=== PATIENT | female | born 1990 | race Caucasian/White ===

== ENCOUNTER 2017-02-20 06:05 | Inpatient (IN) | payer OTHER, MEDICAID ==
[~2017-02-20 06:05] MED LIST: OXYTOCIN/LR *STANDARD DOSE PROTOCOL IV SCH
[2017-02-20 08:46] LABS: % IMMATURE GRANULYOCYTES 0.6 % (0.0-1.1); ABSOLUTE IMMATURE GRANULOCYTES 0.06 10^3/uL (0.00-0.10); ADD DIFF? NO; ADD MORPH? NO; ADD SCAN? NO; ATYPICAL LYMPHOCYTE FLAG 0 (0-99); FRAGMENT RBC FLAG 0 (0-99); HEMATOCRIT 39.5 % (38.0-47.0); HEMOGLOBIN 14.2 g/dL (12.6-16.3); LEFT SHIFT FLG 0 (0-99); LIPEMIA HEMOLYSIS FLAG 90 (0-99); MEAN CELL HEMOGLOBIN 32.3 pg (27.9-34.1); MEAN CELL HEMOGLOBIN CONCENTR. 35.9 g/dL (32.4-36.7); MEAN PLATELET VOLUME 13.7 fL (8.7-11.7); PLATELET CLUMPS FLAG 20 (0-99); PLATELET COUNT 104 10^3/uL (150-400); RED BLOOD CELL COUNT 4.39 10^6/uL (4.18-5.33); RED CELL DISTRIBUTION WIDTH 13.3 % (11.5-15.2)
[2017-02-20] MEDS ORDERED: IBUPROFEN 600 MG TAB PO PRN (11:02)
[2017-02-20] MEDS ORDERED: TERBUTALINE SULFATE 1 MG/ML VIAL IV PRN (11:02)
[2017-02-20] MEDS ORDERED: OLIVE OIL 118 ML BTL MISC PRN (11:02)
[2017-02-20] MEDS ORDERED: LR 1,000 ML IV PRN (11:02)
[2017-02-20] MEDS ORDERED: EPSOM SALT 454 GM TP PRN (11:02)
[2017-02-20] MEDS ORDERED: LIDOCAINE 1% 30 ML SDV SC PRN (11:02)
--- NOTE | 2017-02-20 11:06 | GHP ---
[f rep st] PREOP HISTORY AND PHYSICAL DATE OF ADMISSION: 02/20/2017 ADMITTING DIAGNOSIS: A 26-year-old, 1, para 0 at 41 weeks 0 days, presenting for induction of labor for post dates. HISTORY OF PRESENT COMPLAINT: Cervical Weldon bulb was placed yesterday, 2016, at 1600. Patient presents this morning for scheduled induction for post dates complaining of occasional contractions. States Weldon bulb did not fall out overnight. Reports positive movement. Denies leaking of fluid, vaginal bleeding. complicated by thrombocytopenia and low lying placenta in early , resolved. MEDICAL HISTORY: Porphyria. Patient reports 2 tests for porphyria were positive, 1 test was negative. 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 SURGICAL HISTORY: Appendectomy in 2006; fasciotomy, 10/2010; cholecystectomy 2011; tonsillectomy and adenoid removal, 3rd grade; hip surgery, 2011. MEDICATIONS: vitamin. ALLERGIES: Morphine causes a severe reaction. Azithromycin and erythromycin cause rash. Vicodin causes lightheadedness. TRAIN MASTER HISTORY: Pap 06/2016 negative. Denies history of abnormal Paps or STDs. FAMILY HISTORY: Sister with adult-onset diabetes and kidney stones. SOCIAL HISTORY: Single, FOB involved. The patient has history of drug and ETOH abuse, in recovery since 02/01/2015. OB HISTORY: First . labs O positive. Antibody negative. GBS negative. HIV, hepatitis, and syphilis were all negative. Rubella immune. Gonorrhea, chlamydia negative. 1-hour GTT within normal limits. Declined genetic testing. Platelets started at 214, down to 134, down to 104 as of today. PHYSICAL EXAMINATION: VITAL SIGNS: Stable. GENERAL APPEARANCE: Alert and oriented x3. HEART: Rate regular. LUNGS: Clear to auscultation bilaterally. ABDOMEN: Gravid, nontender. VAGINAL EXAM: 50/-3. POSITION: Cephalic. HEART TRACING: Category 1. heart tones 140s, moderate variability, positive accels, no dcels. CONTRACTIONS: Irregular. ASSESSMENT: 1. A 26-year-old, 1, para 0, at 41 weeks 0 days, presents for induction of labor for post dates. 2. History of thrombocytopenia. 3. History of porphyria. 4. History of seizures. 5. History of ETOH, drug abuse, in recovery since 2014. PLAN: 1. Cervical Weldon bulb removed at 0930. 2. NOB labs. 3. Pain management per patient request. 4. Pitocin induction per protocol. 5. Pitocin risks reviewed with patient, patient verbalized understanding. 6. Discuss thrombocytopenia with anesthesia. 7. Discuss porphyria with Dr. Jordan. 8. Maternal monitoring. 9. Anticipate . /[id number]/MODL MTDD
--- NOTE | 2017-02-20 13:25 | OBPROG ---
OBG Progress Note Assessment/Plan: Assessment: 26y/o IUP @41w0d IOL for post-dates AROM @1320, clear Plan: Con't pitocin IOL per protocol Con't maternal/ monitoring Pain mgmt per pt req Expectant mgmt Anticipate 02/20/17 13:21 Subjective: Pt resting comfortably in bed watching TV. FOB at bedside. Walking/bouncing on yoga ball earlier, felt gush like may have SROM'd. Denies signif pain with CTXs. Objective: 02/20/17 08:10 Patient ABO/Rh O POSITIVE 02/20/17 08:10 - SVE Dilation (cm): 5 Effacement (%): 75 Station: -3 Current Contraction Pattern: Regular (q 3 min, pit @14mU) FHR (bpm): 130 (+accels, occas variable decel) FHR Pattern Variability: Moderate FHR Category: 2 Membranes: AROM (@1320) Amniotic Fluid Color: Clear ICD10 Worksheet Patient Problems: Problems Problem Status Onset Post term at 41 weeks gestation Acute - ICD10 Problem Qualifiers (1) Post term at 41 weeks gestation
[2017-02-20] MEDS ORDERED: PHENYLEPHRINE HCL 100 MCG/ML SYR ONE (14:14)
[2017-02-20] MEDS ORDERED: fentaNYL 2MCG/ML/BUP 0.1% RTU 100 ML BAG EP ONE (14:14)
[2017-02-20] MEDS ORDERED: BUPIVACAINE 0.25% 30 ML SDV ONE ×2 (14:14→17:01)
[2017-02-20] MEDS ORDERED: fentaNYL 100 MCG/2 ML INJ ONE ×4 (14:22→18:38)
[2017-02-20] MEDS ORDERED: fentaNYL 100 MCG/2 ML INJ IVP ONE (16:00)
[2017-02-20] MEDS ORDERED: OLIVE OIL 118 ML BTL ONE (16:06)
[2017-02-20] MEDS ORDERED: LIDOCAINE 1% 30 ML SDV ONE (16:06)
[2017-02-20] MEDS ORDERED: OXYTOCIN 10 UNIT/ML VIAL ONE (16:07)
[2017-02-20] MEDS ORDERED: TERBUTALINE SULFATE 1 MG/ML VIAL ONE (16:07)
[2017-02-20] MEDS ORDERED: AMMONIA AROMATIC 1 EACH AMP IH ONE (16:07)
[2017-02-20] MEDS ORDERED: MISOPROSTOL 200 MCG TAB ONE (16:07)
[2017-02-20] MEDS ORDERED: OXYTOCIN/RINGERS LACTATE 20 UNIT/1,000 ML BAG IV ONE (16:09)
--- NOTE | 2017-02-20 17:09 | OBPROG ---
OBG Progress Note Assessment/Plan: Assessment: 26y/o IUP @41w0d IOL for post-dates AROM @1320, clear Plan: Con't pitocin IOL per protocol Con't maternal/ monitoring Epidural per pt req Anticipate Disc with Dr. Jordan, attending 02/20/17 13:21 02/20/17 17:06 Subjective: Pt c/o severe, sharp neck pain s/p second epidural attempt. States pain worsened with movement. Pressure, ice "somewhat helps." Objective: 02/20/17 08:10 Patient ABO/Rh O POSITIVE 02/20/17 08:10 - SVE Dilation (cm): 6 Effacement (%): 100 Station: 0 Current Contraction Pattern: Regular (q 2-5 min) FHR (bpm): 135 FHR Pattern Variability: Moderate (+variable decels to 100bpm with spont return to baseline) FHR Category: 2 Membranes: AROM Amniotic Fluid Color: Clear - Physical Exam General Appearance: alert, moderate distress Neck: non-tender, limited range of motion ("severe, sharp pain" with movement) Neuro/Psych: alert, normal mood/affect, oriented x 3 ICD10 Worksheet Patient Problems: Problems Problem Status Onset Post term at 41 weeks gestation Acute - ICD10 Problem Qualifiers (1) Post term at 41 weeks gestation
[2017-02-20] MEDS: LIDOCAINE 5% 1 EA PATCH TD SCH (17:20)
[2017-02-20] MEDS ORDERED: fentaNYL 100 MCG/2 ML INJ IV ONE (18:45)
--- NOTE | 2017-02-20 19:15 | OBPROG ---
OBG Progress Note Assessment/Plan: Assessment: Plan: Subjective: patient is complete and has started pushing. epidural placement was complicated by patient experiencing severe neck and upper back pain. pain has persisted after placement. Lidocaine patch and ice have helped some. Patient is able to push and states this is the best she has felt since the epidural placement. status reassuring. will reassess pain in upper back and neck after delivery. Objective: 02/20/17 08:10 Patient ABO/Rh O POSITIVE 02/20/17 08:10 - SVE Dilation (cm): 10 Effacement (%): 100 Station: +2 Current Contraction Pattern: Regular FHR Pattern Variability: Moderate FHR Category: 1 ICD10 Worksheet Patient Problems: Problems Problem Status Onset Post term at 41 weeks gestation Acute
[2017-02-20] MEDS ORDERED: PHENYLEPHRINE HCL 100 MCG/ML SYR IVP PRN (19:39)
[2017-02-20] MEDS ORDERED: ONDANSETRON 4 MG/2 ML VIAL IVP PRN (19:39)
--- NOTE | 2017-02-20 19:46 | PREANESOB ---
Obstetric Pre-Anesthesia Info - General Info Proposed Procedure: Labor and delivery with pitocin. : 1 Para: 0 WBD: 41 - Info Status: Postmature Monitors: External FHR Baseline (bpm): 135 FHR Pattern: Reassuring - Labor Status Cervical Dilation per last OB SVE: 5 Station per last OB SVE: +2 Amniotic Fluid Color: Clear Pitocin: In Use Indications for Labor Analgesia: Induction of Labor, Pain Control Labor Epidural: Proposed Anesthesia ROS: History of porphyria and drug rehabilitation. Allergies/Adverse Reactions: Allergy/AdvReac Type Severity Reaction Status Date / Time acetaminophen [From Vicodin] Allergy Verified 02/20/17 09:57 azithromycin Allergy Verified 02/20/17 09:58 erythromycin base Allergy Verified 02/20/17 10:00 hydrocodone [From Vicodin] Allergy Verified 02/20/17 09:57 lorazepam Allergy Verified 02/20/17 11:06 morphine Allergy Verified 02/20/17 09:58 Home Medications: Medication Instructions Recorded Docusate Sodium [Colace] 100 mg PO BID 02/20/17 Vit27&Calcium/Iron/FA 1 each PO DAILY 02/20/17 [ Rx 1 Tablet (RX)] Visit Medications: Generic Name Dose Route Start Last Admin Trade Name Freq PRN Reason Stop Dose Admin Diphenhydramine HCl 25 - 50 mg 02/20/17 19:39 Benadryl Injection IVP 08/19/17 19:38 Q6HRS PRN Itching Fentanyl 100 mcg 02/20/17 18:45 Sublimaze IV 02/20/17 18:46 ONCE ONE Oxytocin/Lactated Ringer's 500 mls @ 0 mls/hr 02/20/17 06:00 02/20/17 09:02 Pitocin 30 Units/Lr (Premix) IV 08/19/17 05:59 500 mls CONT RYANNE Administration Protocol Per Protocol Lactated Ringer's 1,000 mls @ 0 mls/hr 02/20/17 11:02 Lr IV 08/19/17 11:01 PRN PRN SEE PROTOCOL CONDITIONS Protocol Per Protocol Fentanyl/Bupivacaine HCl 100 mls @ 0 mls/hr 02/20/17 20:00 Fentanyl/Bupivacaine/Ns 2 Mcg/Ml 0.1% (Premix EP 03/02/17 19:59 CONT RYANNE Protocol As Directed Lactated Ringer's 500 mls @ 0 mls/hr 02/20/17 20:00 Lr IV 08/19/17 19:59 CONT RYANNE As Directed Ibuprofen 600 mg 02/20/17 11:02 Motrin PO 08/19/17 11:01 Q6HRS PRN post , inflammation Lidocaine 1 ea 02/20/17 17:00 02/20/17 17:20 Lidoderm 5% TD 08/19/17 16:59 1 ea DAILY RYANNE Administration Lidocaine HCl 30 ml 02/20/17 11:02 Lidocaine Hcl 1% SC 08/19/17 11:01 ONCE PRN Episiotomy Magnesium Sulfate 454 gm 02/20/17 11:02 Epsom Salt TP 08/19/17 11:01 PRN PRN perineal discomfort Miscellaneous Information 1 ea 02/20/17 21:00 Patch Removal TD 08/19/17 20:59 DAILY21 RYANNE [facility] Oil 118 ml 02/20/17 11:02 Sweet Oil MISC 08/19/17 11:01 ONCE PRN preneal massage Ondansetron HCl 4 mg 02/20/17 19:39 Zofran IVP 08/19/17 19:38 Q4HRS PRN Nausea/Vomiting, Can't Take PO Phenylephrine HCl 100 mcg 02/20/17 19:39 Carloz-Synephrine IVP 08/19/17 19:38 .Q2M PRN Hypotension Terbutaline Sulfate 0.25 mg 02/20/17 11:02 Brethine IV 08/19/17 11:01 ONCE PRN Tachysystole Discontinued Medications Generic Name Dose Route Start Last Admin Trade Name Freq PRN Reason Stop Dose Admin Ammonia (Aromatic Spirit) Confirm 02/20/17 16:07 Ammonia Aromatic Administered 02/20/17 16:08 Dose 1 each IH .STK-MED ONE Bupivacaine HCl Confirm 02/20/17 14:14 Sensorcaine 0.25% Sdv Administered 02/20/17 14:15 Dose 30 ml .ROUTE .STK-MED ONE Bupivacaine HCl Confirm 02/20/17 17:01 Sensorcaine 0.25% Sdv Administered 02/20/17 17:02 Dose 30 ml .ROUTE .STK-MED ONE Ephedrine Sulfate Confirm 02/20/17 16:07 Ephedrine Sulfate Administered 02/20/17 16:08 Dose 50 mg .ROUTE .STK-MED ONE Fentanyl Confirm 02/20/17 14:22 Sublimaze Administered 02/20/17 14:23 Dose 100 mcg .ROUTE .STK-MED ONE Fentanyl Confirm 02/20/17 15:08 Sublimaze Administered 02/20/17 15:09 Dose 100 mcg .ROUTE .STK-MED ONE Fentanyl Confirm 02/20/17 15:38 Sublimaze Administered 02/20/17 15:39 Dose 100 mcg .ROUTE .STK-MED ONE Fentanyl 50 - 100 mcg 02/20/17 16:00 02/20/17 15:44 Sublimaze IVP 02/20/17 16:01 50 mcg ONCE ONE Administration Fentanyl Confirm 02/20/17 18:38 Sublimaze Administered 02/20/17 18:39 Dose 100 mcg .ROUTE .STK-MED ONE Fentanyl/Bupivacaine HCl Confirm 02/20/17 14:14 Fentanyl/Bupivacaine/Ns 2 Mcg/Ml 0.1% (Premix Administered 02/20/17 14:15 Dose 100 ml EP .STK-MED ONE Lidocaine HCl Confirm 02/20/17 16:06 Lidocaine Hcl 1% Administered 02/20/17 16:07 Dose 30 ml .ROUTE .STK-MED ONE Misoprostol Confirm 02/20/17 16:07 Cytotec Administered 02/20/17 16:08 Dose 800 mcg .ROUTE .STK-MED ONE [facility] Oil Confirm 02/20/17 16:06 Sweet Oil Administered 02/20/17 16:07 Dose 118 ml .ROUTE .STK-MED ONE Oxytocin Confirm 02/20/17 16:07 Pitocin Administered 02/20/17 16:08 Dose 40 unit .ROUTE .STK-MED ONE Oxytocin/Lactated Ringer's Confirm 02/20/17 16:09 Pitocin 20 Units/Lr (Premix) Administered 02/20/17 16:10 Dose 20 unit IV .STK-MED ONE Phenylephrine HCl Confirm 02/20/17 14:14 Carloz-Synephrine Administered 02/20/17 14:15 Dose 1,000 mcg .ROUTE .STK-MED ONE Terbutaline Sulfate Confirm 02/20/17 16:07 Brethine Administered 02/20/17 16:08 Dose 1 mg .ROUTE .STK-MED ONE - Anesthesia History Response to Local Anesthetics: Normal Anesthesia & Operative History: No Prior Problems - Social History Substance Use/Abuse: Drug Use/Abuse - Focused Exam Blood Pressure: 132/74 Heart Rate: 70 Respiratory Rate: 16 Height/Weight (Nursing): Height 175.26 cm Weight 86.636 kg Physical Exam: Within normal limits. ASA Status: II Labs: 02/20/17 08:10 Patient ABO/Rh O POSITIVE 02/20/17 08:10 - Plan Anesthetic Plan: CSE Consent Signed and on Chart: Yes Patient/Guardian Understands and Agrees to Plan: Yes General Comments: Unable to achieve adequate epidural analgesia after attempt at 2 different
[2017-02-20] MEDS ORDERED: fentaNYL 2MCG/ML/BUP 0.1% RTU 100 ML EP SCH (20:00)
[2017-02-20] MEDS ORDERED: LR 500 ML IV SCH (20:00)
--- NOTE | 2017-02-20 20:04 | POSTANESTH ---
Post Anesthetic Evaluation Cardiovascular Status: Normal, Stable, Similar to Pre-Op Cond Respiratory Status: Normal, Stable, Similar to Pre-op Cond. Level of Consciousness/Mental Status: Can Participate in Eval, Alert and Oriented Pain Control: Adequate, Prn Tx Ordered Nausea/Vomiting Control: Adequate, Prn Tx Ordered Complications Possibly Related to Anesthesia: Other, See Comments (Unable to achieve effective epidural analgesia after attempt at [address] Velasco called and able to place adequate epidural. The patient experienced neck pain after initial attempts at epidural placement. Will follow for resolution.)
[2017-02-20] MEDS ORDERED: HYDROCODONE/APAP 5/325 TAB PO PRN (21:47)
[2017-02-20] MEDS ORDERED: HYDROCORTISONE 0.5% CREAM TP PRN (21:47)
[2017-02-20] MEDS ORDERED: SIMETHICONE 80 MG TAB CHEW PO PRN (21:47)
--- NOTE | 2017-02-20 21:58 | OBPROC ---
- Labor and Delivery Onset of Contractions Date: 02/20/17 Onset of Contractions Time: 09:30 Onset of Contractions Type: Induced Rupture of Membranes Date: 02/20/17 Rupture of Membranes Time: 13:19 Rupture of Membranes Type: Artificial Amniotic Fluid Color: Clear Dilation Complete Time: 18:45 Delivery Type: Spontaneous Placenta Delivery Date: 02/20/17 Placenta Delivery Time: 21:04 Episiotomy/Laceration: 2nd Degree, Other (Specify) (vaginal) Repair: 3-0, Vicryl (x1) EBL: 400 Complications: Nuchal Cord (x4) - Medications Labor Augmentation/Induction Meds Used: Pitocin Labor Augmentation/Induction Indication: Post Dates Anesthesia: Epidural, Local (Specify) (lidocaine 1% for lac repair) - Info A Delivery Date: 02/20/17 Delivery Time: 20:57 Sex of : Male Score (1 Min): 8 Score (5 Min): 9
[2017-02-20] MEDS: ACETAMINOPHEN 325 MG TAB PO PRN (21:59)
[2017-02-20] MEDS ORDERED: OXYTOCIN/RINGERS LACTATE 500 ML IV SCH (22:00)
[2017-02-20] MEDS: PATCH REMOVAL 1 EA PATCH TD SCH (22:30)
[2017-02-21] MEDS: ACETAMINOPHEN 325 MG TAB PO PRN ×4 (02:16→16:33)
[2017-02-21] MEDS: LIDOCAINE 5% 1 EA PATCH TD SCH (09:39)
--- NOTE | 2017-02-21 10:05 | SOAPPROG ---
SOAP Progress Note Assessment/Plan: Assessment: with assistance pain with latch ff2U scant rubra lochia perineum swollen vs wnl afebrile pain well managed Plan: consult, apno cream, education and assistance with latch while in room perineal lidocaine spray, tub and epsom salt baths encourage pain relief pp day 1 expectant management 02/21/17 09:59 02/21/17 10:08 Subjective: Doing well. States feeling pain at her perineum. States having difficulties with , latch and pain. Objective: Vital Signs Temp Pulse Resp BP Pulse Ox 37.4 C 90 16 127/65 H 93 02/21/17 01:15 02/21/17 01:15 02/21/17 01:15 02/21/17 01:15 02/21/17 01:15 Laboratory Results 02/21/17 05:10 02/20/17 02/21/17 02/22/17 05:59 05:59 05:59 Output Total 600 Balance -600 - Time Spent With Patient Time Spent With Patient: 15 minutes - Pending Discharge Pending Discharge Within 24 Hours: Yes Pending Discharge Date: 02/22/17 Pending Discharge Time: 11:00 Physical Exam - Physical Exam General Appearance: WD/WN, alert, no apparent distress Cardiac/Chest: regular rate, rhythm Abdomen: normal bowel sounds, other (FF@u) Pelvic Exam: vaginal bleeding (scant rubra lochia) Skin: normal color, warm/dry Extremities: normal range of motion, Constantine's sign (negatative bilaterally) Neuro/Psych: no motor/sensory deficits, alert, normal mood/affect, oriented x 3 ICD10 Worksheet Patient Problems: Problems Problem Status Onset (normal spontaneous vaginal delivery) Acute
[2017-02-21] MEDS: DOCUSATE SODIUM 100 MG CAP PO PRN (12:25)
[2017-02-21] MEDS ORDERED: fentaNYL 100 MCG/2 ML INJ IVP ONE (15:00)
[2017-02-21] MEDS ORDERED: CODEINE SULF 30 MG TAB PO ONE (17:30)
[2017-02-21] MEDS: PATCH REMOVAL 1 EA PATCH TD SCH (19:52)
[2017-02-22] MEDS: DOCUSATE SODIUM 100 MG CAP PO PRN (00:22)
[2017-02-22] MEDS: ACETAMINOPHEN/CODEINE 300/30MG TAB PO PRN ×2 (00:23→06:42)
[2017-02-22 08:15] VITALS: BP 129/78; PULSE 96; RESP 16; TEMP 97.4; O2SAT 96
--- NOTE | 2017-02-22 08:41 | SOAPPROG ---
SOAP Progress Note Assessment/Plan: Assessment: ppd# 2 s/p post epidural neck pain resolved breast feeding anemia perineal swelling - stable Plan: routine post discharge instructions 02/22/17 08:39 Subjective: patient is doing well. pain is well controlled. normal lochia. breast feeding is going well. bottom is swollen and sore but getting better. had episode of hip pain which improved with a bath and pain mends. ambulating. passing gas. voiding without difficulty. mood great. Objective: Vital Signs Temp Pulse Resp BP Pulse Ox 36.3 C 96 16 129/78 H 96 02/22/17 08:14 02/22/17 08:14 02/22/17 08:14 02/22/17 08:14 02/22/17 08:14 Laboratory Results 02/21/17 05:10 02/21/17 02/22/17 02/23/17 05:59 05:59 05:59 Output Total 600 Balance -600 Physical Exam - Physical Exam General Appearance: WD/WN, alert, no apparent distress Respiratory: chest non-tender, lungs clear, normal breath sounds Cardiac/Chest: normal peripheral pulses, regular rate, rhythm Abdomen: normal bowel sounds, non-tender, soft, other (fundus firm and non tender) Skin: normal color, warm/dry Extremities: normal range of motion, non-tender, normal inspection, normal capillary refill Neuro/Psych: no motor/sensory deficits, alert, normal mood/affect, oriented x 3 ICD10 Worksheet Patient Problems: Problems Problem Status Onset (normal spontaneous vaginal delivery) Acute
[2017-02-22] MEDS ORDERED: IRON POLYSAC/IRON HEME 28 MG TAB PO SCH (09:00)
[2017-02-22] MEDS: ACETAMINOPHEN 325 MG TAB PO PRN (10:10)
[2017-02-22] MEDS: LIDOCAINE 5% 1 EA PATCH TD SCH (10:40)
== END 2017-02-22 19:15 | disposition home or self-care (01) | DRG 775 ==
LOC: FLD 06:05 → FOB 02-21 00:58
PROVIDERS: ADMIT Obstetrics & Gynecology; ATTEND Obstetrics & Gynecology
PROC: 0KQM0ZZ Repair Perineum Muscle, Open Approach (ICD-10-PCS; principal; 2017-02-20)
PROC: 10E0XZZ Delivery of Products of Conception, External Approach (ICD-10-PCS; principal; 2017-02-20)
DX: O48.0 Post-term pregnancy (principal); O70.1 Second degree perineal laceration during delivery; O99.89 Other specified diseases and conditions complicating pregnancy, childbirth and the puerperium; E80.20 Unspecified porphyria; G40.909 Epilepsy, unspecified, not intractable, without status epilepticus; O69.81X0 Labor and delivery complicated by cord around neck, without compression, not applicable or unspecified; Z3A.41 41 weeks gestation of pregnancy; Z37.0 Single live birth
CPT/HCPCS: J2370; J2590; J3010; J3105